=== PATIENT | female | born 2000 | race Caucasian/White ===

== ENCOUNTER 2023-05-01 10:10 | Outpatient (CLI) | payer BC, SELFPAY ==
[2023-05-01 15:24] LABS: GC DNA Amplified* NOT DETECTED (No Detected)
[2023-05-01 20:12] LABS: Chlamydia DNA Amplified* DETECTED (No Detected)
== END 2023-05-01 10:11 | disposition home or self-care (01) ==
LOC: FRMREF 10:13
PROVIDERS: Visit Provider Registered Nurse
DX: Z11.3 Encounter for screening for infections with a predominantly sexual mode of transmission (principal)
CPT/HCPCS: 87491; 87591

== ENCOUNTER 2025-04-21 09:55 | Outpatient (CLI) | payer OTHER, SELFPAY | END 2025-04-21 09:56 | disposition home or self-care (01) | LOC: LKVREF 09:56 | PROVIDERS: Visit Provider Family Medicine | DX: F98.8 Other specified behavioral and emotional disorders with onset usually occurring in childhood and adolescence (principal) | CPT/HCPCS: 80306 ==